=== PATIENT | female | born 2000 | race Two or more races ===

== ENCOUNTER 2021-12-31 23:56 | Emergency (ER) | payer MEDICAID ==
[~2021-12-31] VITALS: Ht 167.6 cm; Wt 86.6 kg
[2021-12-31 23:56] VITALS: BP 152/80
[2021-12-31] MEDS ORDERED: ALBUTEROL SULF 2.5 MG/0.5ML(0.5%) NEB SOLN NEB STA (23:57)
[2022-01-01] MEDS ORDERED: IPRATROPIUM BROM 0.5 MG/2.5ML INH SOL NEB ONE
[2022-01-01 01:20] LABS: Basophils # (auto) 0.2 10 ^3/uL (0-0.2); Basophils % (auto) 2.3 % (0.0-2.0); Eosinophils # (auto) 0.3 10 ^3/uL (0-0.8); Eosinophils % (auto) 3.1 % (0.0-7.0); Hematocrit 39.1 % (36.0-46.0); Hemoglobin 13.5 g/dL (12.2-16.2); Lymphocytes # (auto) 1.7 10 ^3/uL (0.4-5.4); Lymphocytes % (auto) 18.9 % (10.0-50.0); Mean Corpuscular Hemoglobin 29.4 pg (28.0-32.0); Mean Corpuscular Hgb Conc. 34.4 g/dL (32.0-36.0); Mean Corpuscular Volume 85.4 fL (80.0-100.0); Monocytes # (auto) 0.8 10 ^3/uL (0-1.3); Monocytes % (auto) 8.9 % (0.0-12.0); Neutrophils # (auto) 6.2 10 ^3/uL (1.6-8.6); Neutrophils % (auto) 66.8 % (37.0-80.0); Nucleated Red Blood Cells % 0.1 %; Red Blood Cells 4.57 10^6/uL (4.0-5.20); Red Cell Distribution Width 14.1 % (11.8-14.3); White Blood Cell 9.2 10^3/uL (4.4-10.8)
[2022-01-01 01:32] LABS: Albumin 2.9 g/dL (3.4-5.0); BUN/Creatinine Ratio 9.8; Calcium 8.9 mg/dL (8.5-10.1); Potassium 3.3 mmol/L (3.5-5.1)
[2022-01-01 01:35] LABS: Bilirubin, Total 0.4 mg/dL (0.2-1.0); Total Protein 6.8 g/dL (6.4-8.2)
== END 2022-01-01 03:06 | disposition left against medical advice (07) ==
LOC: ER 23:56
DX: O99.513 Diseases of the respiratory system complicating pregnancy, third trimester (principal); J45.901 Unspecified asthma with (acute) exacerbation; R07.89 Other chest pain; Z53.21 Procedure and treatment not carried out due to patient leaving prior to being seen by health care provider; Z3A.29 29 weeks gestation of pregnancy
CPT/HCPCS: 36415; 80053; 83735; 83880; 84484; 85025; 93005; 94640; J7644

== ENCOUNTER 2022-02-04 08:14 | Observation (INO) | payer MEDICAID ==
[2022-02-06] MEDS ORDERED: PREN-129 OR (21:33)
[2022-02-13] MEDS ORDERED: METF-370 PO (13:49)
== END 2022-02-13 14:32 | disposition home or self-care (01) ==
LOC: LDRP 02-13 12:55
PROVIDERS: ADMIT Obstetrics & Gynecology; ATTEND Obstetrics & Gynecology
DX: O24.419 Gestational diabetes mellitus in pregnancy, unspecified control (principal); Z3A.34 34 weeks gestation of pregnancy
CPT/HCPCS: 59025; 76818; 81002; 82948; 82962; 94760; G0378

== ENCOUNTER 2022-02-06 20:40 | Observation (INO) | payer MEDICAID ==
[2022-02-06] MEDS ORDERED: PREN-129 OR (21:33)
== END 2022-02-06 22:24 | disposition home or self-care (01) ==
LOC: LDRP 20:40
PROVIDERS: ADMIT Obstetrics & Gynecology Obstetrics; ATTEND Obstetrics & Gynecology Obstetrics
DX: O24.419 Gestational diabetes mellitus in pregnancy, unspecified control (principal); Z3A.33 33 weeks gestation of pregnancy
CPT/HCPCS: 59025; 76818; 81002; 82948; 82962; 94760; G0378

== ENCOUNTER 2022-02-17 07:36 | Observation (INO) | payer MEDICAID ==
[~2022-02-17 07:36] MED LIST: METF-370 PO; PREN-129 PO
== END 2022-02-17 17:14 | disposition home or self-care (01) ==
LOC: LDRP 15:42 → UNDOADMOB 15:47
PROVIDERS: ADMIT Obstetrics & Gynecology; ATTEND Obstetrics & Gynecology
DX: O24.419 Gestational diabetes mellitus in pregnancy, unspecified control (principal); Z3A.35 35 weeks gestation of pregnancy
CPT/HCPCS: 59025; 76818; 81002; G0378

== ENCOUNTER 2022-02-19 11:04 | Observation (INO) | payer MEDICAID | END 2022-02-19 15:47 | disposition home or self-care (01) | LOC: UNDOADMOB 14:10 → LDRP 14:10 | PROVIDERS: ADMIT Obstetrics & Gynecology; ATTEND Obstetrics & Gynecology | DX: O24.419 Gestational diabetes mellitus in pregnancy, unspecified control (principal); Z3A.35 35 weeks gestation of pregnancy | CPT/HCPCS: 59025; 76818; 81002; 82948; 82962; 94760; G0378 ==

== ENCOUNTER 2022-02-24 19:20 | Observation (INO) | payer MEDICAID ==
[2022-02-24] MEDS ORDERED: GLYB2.5T8 PO (19:54)
== END 2022-02-24 21:18 | disposition home or self-care (01) ==
LOC: LDRP 19:20
PROVIDERS: ADMIT Obstetrics & Gynecology; ATTEND Obstetrics & Gynecology
DX: O24.419 Gestational diabetes mellitus in pregnancy, unspecified control (principal); Z3A.36 36 weeks gestation of pregnancy
CPT/HCPCS: 59025; 76818; 81002; 82948; 94760; G0378

== ENCOUNTER 2022-02-27 11:50 | Observation (INO) | payer MEDICAID ==
[~2022-02-27 11:50] MED LIST changes: +GLYB2.5T8 PO
== END 2022-02-27 15:45 | disposition home or self-care (01) ==
LOC: LDRP 13:13 → UNDOADMOB 13:14
PROVIDERS: ADMIT Obstetrics & Gynecology; ATTEND Obstetrics & Gynecology
DX: O24.415 Gestational diabetes mellitus in pregnancy, controlled by oral hypoglycemic drugs (principal); O26.893 Other specified pregnancy related conditions, third trimester; N89.8 Other specified noninflammatory disorders of vagina; Z3A.36 36 weeks gestation of pregnancy
CPT/HCPCS: 59025; 76818; 81002; 82948; 82962; G0378

== ENCOUNTER 2022-03-03 09:55 | Observation (INO) | payer MEDICAID | END 2022-03-04 16:50 | disposition home or self-care (01) | LOC: UNDOADMOB 03-04 15:23 → LDRP 03-04 15:23 | PROVIDERS: ADMIT Obstetrics & Gynecology; ATTEND Obstetrics & Gynecology | DX: O24.419 Gestational diabetes mellitus in pregnancy, unspecified control (principal); O26.893 Other specified pregnancy related conditions, third trimester; R51.9 Headache, unspecified; Z3A.37 37 weeks gestation of pregnancy | CPT/HCPCS: 59025; 76818; 81002; 82962; 94760; G0378 ==

== ENCOUNTER 2022-03-06 13:29 | Observation (INO) | payer MEDICAID | END 2022-03-06 16:31 | disposition home or self-care (01) | LOC: LDRP 15:10 → UNDOADMOB 15:10 → LDRP 15:38 | PROVIDERS: ADMIT Obstetrics & Gynecology; ATTEND Obstetrics & Gynecology | DX: O24.419 Gestational diabetes mellitus in pregnancy, unspecified control (principal); Z3A.37 37 weeks gestation of pregnancy | CPT/HCPCS: 59025; 76818; 81002; 82948; 82962; G0378 ==

== ENCOUNTER 2022-03-11 12:39 | Observation (INO) | payer MEDICAID | END 2022-03-11 17:10 | disposition home or self-care (01) | LOC: UNDOADMOB 15:00 → LDRP 15:00 → UNDODISOB 17:10 | PROVIDERS: ADMIT Obstetrics & Gynecology; ATTEND Obstetrics & Gynecology | DX: O24.419 Gestational diabetes mellitus in pregnancy, unspecified control (principal); Z3A.38 38 weeks gestation of pregnancy | CPT/HCPCS: 76818; G0378; 59025; 81002; 82962; 94760 ==

== ENCOUNTER 2022-03-14 12:10 | Observation (INO) | payer MEDICAID | END 2022-03-14 12:11 | disposition home or self-care (01) | LOC: LDRP 12:10 | PROVIDERS: ADMIT Obstetrics & Gynecology; ATTEND Obstetrics & Gynecology | DX: O24.419 Gestational diabetes mellitus in pregnancy, unspecified control (principal); Z3A.38 38 weeks gestation of pregnancy ==

== ENCOUNTER 2022-03-15 09:28 | Observation (INO) | payer MEDICAID ==
[~2022-03-15] VITALS: Ht 167.6 cm; Wt 87.5 kg
== END 2022-03-15 11:07 | disposition home or self-care (01) ==
LOC: LDRP 09:28
PROVIDERS: ADMIT Obstetrics & Gynecology; ATTEND Obstetrics & Gynecology
DX: O24.419 Gestational diabetes mellitus in pregnancy, unspecified control (principal); O62.9 Abnormality of forces of labor, unspecified; Z3A.38 38 weeks gestation of pregnancy
CPT/HCPCS: 59025; 76818; 81002; 82962; 94760; G0378

== ENCOUNTER 2022-03-17 08:22 | Observation (INO) | payer MEDICAID ==
[~2022-03-17] VITALS: Ht 172 cm; Wt 87.5 kg
== END 2022-03-17 09:18 | disposition home or self-care (01) ==
LOC: UNDOADMOB 08:22 → LDRP 08:22
PROVIDERS: ADMIT Obstetrics & Gynecology; ATTEND Obstetrics & Gynecology
DX: O24.419 Gestational diabetes mellitus in pregnancy, unspecified control (principal); O26.893 Other specified pregnancy related conditions, third trimester; R51.9 Headache, unspecified; Z3A.39 39 weeks gestation of pregnancy
CPT/HCPCS: 59025; 76818; 81002; 82948; 82962; 94760; G0378

== ENCOUNTER 2022-03-18 22:00 | Inpatient (IN) | payer MEDICAID ==
[~2022-03-18] VITALS: Ht 167.6 cm; Wt 88.0 kg
[2022-03-18] MEDS: LACTATED RINGER'S 1,000 ML IV SCH (22:15)
[2022-03-18] MEDS ORDERED: LIDOCAINE 2%HCL (LOCAL ANESTH.) INJ 10ml MDV IJ PRN (22:15)
[2022-03-18] MEDS ORDERED: BUTORPHANOL TARTRATE 2 MG/1 ML VIAL IV PRN ×2 (22:15)
[2022-03-18] MEDS ORDERED: PROMETHAZINE HCL 25 MG/ML 1ML IV PRN (22:15)
[2022-03-18] MEDS ORDERED: METHYLERGONOVINE MALEATE 0.2 MG/ML AMP IM PRN (22:30)
[2022-03-18] MEDS ORDERED: NS/OXYTOCIN 20UNITS 500 ML IV ONE ×2 (22:30→23:00)
[2022-03-18] MEDS ORDERED: miSOPROStol 100 mcg TAB PR PRN (22:30)
[2022-03-18] MEDS ORDERED: miSOPROStol 100 mcg TAB SL PRN (22:30)
[2022-03-18] MEDS ORDERED: ONDANSETRON HCL 4 MG/2 ML VIAL IV PRN (22:30)
[2022-03-18] MEDS ORDERED: CARBOPROST TROMETHAMINE 250 MCG/1ML VIAL IM PRN (22:30)
[2022-03-18 22:49] LABS: Basophils # (auto) 0 10 ^3/uL (0-0.2); Basophils % (auto) 0.4 % (0.0-2.0); Eosinophils # (auto) 0.1 10 ^3/uL (0-0.8); Eosinophils % (auto) 1.3 % (0.0-7.0); Hematocrit 42.4 % (36.0-46.0); Hemoglobin 14.5 g/dL (12.2-16.2); Lymphocytes # (auto) 1.9 10 ^3/uL (0.4-5.4); Lymphocytes % (auto) 21.2 % (10.0-50.0); Mean Corpuscular Hemoglobin 30.1 pg (28.0-32.0); Mean Corpuscular Hgb Conc. 34.2 g/dL (32.0-36.0); Monocytes # (auto) 0.5 10 ^3/uL (0-1.3); Monocytes % (auto) 5.8 % (0.0-12.0); Neutrophils # (auto) 6.5 10 ^3/uL (1.6-8.6); Neutrophils % (auto) 71.3 % (37.0-80.0); Red Blood Cells 4.82 10^6/uL (4.0-5.20); Red Cell Distribution Width 14.6 % (11.8-14.3); White Blood Cell 9.1 10^3/uL (4.4-10.8)
[2022-03-18 22:57] LABS: Urine Bacteria FEW /hpf (None Seen); Urine Blood Negative /uL (Negative); Urine Specific Gravity 1.009 (1.001-1.035); Urine WBC 7 /hpf (0 - 5)
[2022-03-18 23:07] LABS: INR 0.92 (0.9-1.15); Partial Thromboplastin Time 27.9 sec (24.6-33.4)
[2022-03-18 23:10] LABS: Amphetamine Screen, Urine NEGATIVE (NEGATIVE); Barbiturate Scree,Urine NEGATIVE (NEGATIVE); Benzodiazephine Screen, Urine NEGATIVE (NEGATIVE); Cannabinoid Screen, Urine NEGATIVE (NEGATIVE); Cocaine Screen, Urine NEGATIVE (NEGATIVE); Opiate Scree,Urine NEGATIVE (NEGATIVE); Phencyclidine Screen, Urine NEGATIVE (NEGATIVE)
[2022-03-18 23:12] LABS: Albumin 3.1 g/dL (3.4-5.0); BUN/Creatinine Ratio 16.7; Calcium 8.7 mg/dL (8.5-10.1); Potassium 3.5 mmol/L (3.5-5.1)
[2022-03-18 23:14] LABS: Bilirubin, Total 0.3 mg/dL (0.2-1.0); Total Protein 7.4 g/dL (6.4-8.2)
[2022-03-19] MEDS: miSOPROStol 50 MCG per PRE-CUT 1/2 TAB PO PRN ×5 (00:07→21:04)
[2022-03-19] MEDS ORDERED: ACETAMINOPHEN 325 MG TAB PO ONE (02:00)
[2022-03-19] MEDS: ACCU-CHEK COMFORT CURVE STRIP VI SCH ×4 (02:10→14:07)
[2022-03-19] MEDS: LACTATED RINGER'S 1,000 ML IV SCH ×2 (05:48→14:39)
[2022-03-19] MEDS ORDERED: DIPHENOXYLATE W/ATROPINE 2.5 MG TAB PO SCH (10:00)
[2022-03-19] MEDS ORDERED: D5W/LACTATED RINGERS 1,000 ML IV SCH (18:30)
[2022-03-19] MEDS: LACT. RINGERS/OXYTOCIN 20UNITS 1,000 ML IV SCH (20:44)
[2022-03-20] MEDS: LACT. RINGERS/OXYTOCIN 20UNITS 1,000 ML IV SCH (01:06)
[2022-03-20] MEDS: PHISODERM TOP SOLN 240ML BTL TOP PRN ×2 (02:45→22:41)
[2022-03-20] MEDS: DERMOPLAST 60ML BOTTLE TOP PRN ×2 (02:45→22:41)
[2022-03-20] MEDS: WITCH HAZEL-GLYCERIN PAD TOP PRN ×2 (02:45→22:41)
[2022-03-20] MEDS ORDERED: PROMETHAZINE HCL 25 MG/ML 1ML IV PRN (03:30)
[2022-03-20] MEDS ORDERED: TERBUTALINE SULFATE 1 MG/ML 1ML VIAL SC PRN (04:30)
[2022-03-20 05:07] LABS: RPR Non Reactive (Non Reactive)
[2022-03-20] MEDS ORDERED: ePHEDrine SULFATE 50 MG/ML AMP IV ONE (05:45)
[2022-03-20] MEDS ORDERED: NALOXONE HCL 0.4 MG/ML VIAL IV ONE (05:45)
[2022-03-20] MEDS ORDERED: fentaNYL CITRATE 100 MCG/2 ML VL IV ONE (05:45)
[2022-03-20] MEDS ORDERED: LIDOCAINE HCL 2 %PF INJ 10ML AMP IJ ONE (05:45)
[2022-03-20] MEDS ORDERED: LACTATED RINGER'S 1,000 ML IV ONE (05:45)
[2022-03-20] MEDS ORDERED: ROPIVACAINE HCL 200 ML EPI SCH (05:45)
[2022-03-20] MEDS ORDERED: LACT. RINGERS/OXYTOCIN 20UNITS 500 ML IV ONE ×2 (07:30→08:00)
[2022-03-20] MEDS ORDERED: ACETAMINOPHEN 325 MG TAB PO PRN (09:00)
[2022-03-20 11:00] VITALS: BP 114/53
[2022-03-20 15:00] VITALS: BP 146/86
[2022-03-20] MEDS: IBUPROFEN 800 MG TAB PO SCH ×2 (15:15→22:41)
[2022-03-20 19:00] VITALS: BP 113/67
[2022-03-20 23:05] VITALS: BP 116/69
[2022-03-21] MEDS: IBUPROFEN 800 MG TAB PO SCH
[2022-03-21 02:55] VITALS: BP 113/68
[2022-03-21 07:00] VITALS: BP 118/60
[2022-03-21 11:00] VITALS: BP 116/72
[2022-03-21 15:00] VITALS: BP 120/86
== END 2022-03-21 16:15 | disposition home or self-care (01) | DRG 560 ==
LOC: LDRP 22:00
PROVIDERS: ADMIT Obstetrics & Gynecology; ATTEND Obstetrics & Gynecology
PROC: 3E0DXGC Introduction of Other Therapeutic Substance into Mouth and Pharynx, External Approach (ICD-10-PCS; 2022-03-18)
PROC: 3E0P7VZ Introduction of Hormone into Female Reproductive, Via Natural or Artificial Opening (ICD-10-PCS; 2022-03-18)
PROC: 10E0XZZ Delivery of Products of Conception, External Approach (ICD-10-PCS; principal; 2022-03-20)
PROC: 3E0R3BZ Introduction of Anesthetic Agent into Spinal Canal, Percutaneous Approach (ICD-10-PCS; 2022-03-20)
PROC: 00HU33Z Insertion of Infusion Device into Spinal Canal, Percutaneous Approach (ICD-10-PCS; 2022-03-20)
DX: O24.425 Gestational diabetes mellitus in childbirth, controlled by oral hypoglycemic drugs (principal); Z37.0 Single live birth; Z20.822 Contact with and (suspected) exposure to COVID-19; Z3A.39 39 weeks gestation of pregnancy
CPT/HCPCS: 36415; 59409; 62282; 80053; 80307; 81001; 81002; 82948; 82962; 85025; 85610; 85730; 86592; 86850; 86900; 86901; 94760; 94762; 96360; 96361; 96365; 96366; 96372; 96374; 96375; G0378; J2001; J2590